=== PATIENT | female | born 1995 | race Caucasian/White ===

== ENCOUNTER 2022-04-20 18:39 | Emergency (ER) | payer SELFPAY ==
[~2022-04-20] VITALS: Ht 167.6 cm; Wt 102.0 kg
[2022-04-20] MEDS ORDERED: KETOROLAC 60MG/2ML VIAL IM ONE (21:45)
[2022-04-21] MEDS ORDERED: KETOROLAC 60MG/2ML VIAL IM NR (00:15)
[2022-04-21 00:54] VITALS: BP 118/78
== END 2022-04-21 00:55 | disposition home or self-care (01) ==
LOC: ER 18:39
DX: S30.0XXA Contusion of lower back and pelvis, initial encounter (principal); S20.213A Contusion of bilateral front wall of thorax, initial encounter; V49.9XXA Car occupant (driver) (passenger) injured in unspecified traffic accident, initial encounter; Y93.89 Activity, other specified; Y92.89 Other specified places as the place of occurrence of the external cause; Y99.8 Other external cause status
CPT/HCPCS: 71250; 72100; 81025; 99284; J1885